=== PATIENT | male | born 1975 | race Caucasian/White ===

== ENCOUNTER 2024-06-30 16:25 | Emergency (ER) | payer BC, SELFPAY ==
[2024-06-30 16:45] VITALS: BP 141/100; PULSE 97; TEMP 36.8; O2SAT 97; BMI 23.0
--- NOTE | 2024-06-30 17:20 | CT_ITS ---
[address] [address] Patient Name: KENDY CASSIDY MRN: [id number] date: 1975 Sex: M Assigned Patient Location: ER Current Patient Location: .[facility] Accession/Order Number: [id number] Exam Date: 06/30/2024 18:05 Report Date: 06/30/2024 19:40 At the request of: CONNIE PERAZA Procedure: CT abdomen pelvis w con Indication: Left groin pain. Bright red blood in stool with diarrhea. Comparison: None Procedure: Axial images were made from the diaphragms through the symphysis pubis. No oral contrast was given prior to scanning. 100 mL Omnipaque 300 Intravenous contrast was given. Dose reduction techniques were achieved by using automated exposure control and/or adjustment of mA and/or kV according to patient size and/or use of iterative reconstruction technique. Findings: Liver/Biliary System: A 1.1 cm subtle hypodensity in left lobe of the liver, probably benign ? Hemangioma. No intra or extrahepatic biliary dilatation. No gallstones or cholecystitis. Pancreas/Spleen: No evidence of acute pancreatitis. Pancreatic duct is not dilated. No pancreatic masses. No splenomegaly or splenic lesions. Kidneys/Adrenals: Normal symmetrical nephrograms. No renal masses. No renal or ureteral stones are seen. No hydronephrosis or hydroureter bilaterally. No adrenal nodules. Aorta/Vessels: No evidence of aortic aneurysm. Patent IVC, renal veins, hepatic veins and portal venous system. Bowel/Fluid/Nodes: Hyperenhancement of terminal ileum mucosa which may suggest terminal ileitis. There is also mild diffuse wall thickening of transverse colon with prominent vasa recta which may suggest colitis. Please correlate clinically. Colonic diverticulosis with no evidence of diverticulitis. Normal appendix. No small bowel dilatation or wall thickening. No evidence of bowel obstruction. No ascites or fluid collections. No adenopathy. Lung bases: Clear. Other findings: No aggressive osseous lesions are seen. Pelvis: No pelvic masses or adenopathy. No free fluid seen in the pelvis. Bladder, seminal vesicles and prostate are unremarkable. Bilateral Fat-containing inguinal hernias. Other Findings: No aggressive osseous lesions are seen. CT/CT abdomen pelvis w con Impression: 1. Hyperenhancement of terminal ileum mucosa which may suggest terminal ileitis. There is also mild diffuse wall thickening of transverse colon with prominent vasa recta which may suggest colitis. Please correlate clinically. 2. Colonic diverticulosis. Bilateral fat-containing inguinal hernias. 3. A 1.1 cm subtle hypodensity in left lobe of the liver, probably benign ? Hemangioma. Ultrasound may be recommended on a nonemergent basis to confirm hemangioma. Electronically authenticated by: ELIZABETH NGUYEN Date: 06/30/2024 19:40
--- NOTE | 2024-06-30 17:21 | ED_ITS ---
HPI - Abdominal Pain General Chief Complaint: Abdominal Pain Stated Complaint: HERNIA Time Seen by Provider: 06/30/24 17:15 Mode of arrival: walk-in History of Present Illness HPI narrative: 48 year old male presents to the ED for rectal bleeding, diarrhea, left groin pain. Onset was 3 days ago for the diarrhea. Reports bright red blood in his stool yesterday. The loose stools started after he began taking meloxicam. Also states he was told he has an inguinal hernia about one month ago. He did not start having pain to the area until today. He does heavy lifting, climbing at work. Denies known injury. Denies fever, chills, urinary sx. Denies straining with bowel movements. Denies dizziness, SOB. Related Data Previous Rx's ?Medication ?Instructions ?Recorded ciprofloxacin HCl 500 mg tablet 500 mg PO Q12H #20 tabs 06/30/24 (Cipro) metronidazole 500 mg tablet 500 mg PO Q8H 10 days #30 tabs 06/30/24 prednisone 10 mg tablet See Rx Instructions .Route 06/30/24 .COMPLEX #30 tabs Allergies Allergy/AdvReac Type Severity Reaction Status Date / Time No Known Drug Allergies Allergy Verified 06/30/24 16:45 Review of Systems ROS Constitutional Denies: fever or chills Ears, nose, mouth, and throat Denies: throat pain Cardiovascular Denies: chest pain Respiratory Denies: shortness of breath Gastrointestinal Reports: diarrhea and blood in stool; Denies: abdominal pain, nausea, vomiting, constipation, rectal pain, rectal swelling or rectal itching Genitourinary Reports: scrotal swelling; Denies: painful urination, urinary urgency, blood in urine or penile discharge Musculoskeletal Denies: back pain or neck pain Integumentary/Breast Denies: rash Neurological Denies: numbness in extremities, weakness in extremities or dizziness PFSH PFSH Social History Little interest or pleasure in doing things: not at all Feeling down, depressed, or hopeless: not at all Exam Narrative Exam Narrative: RN at bedside for creative recruiter. Constitutional Vital Signs, click to edit/add: Last Vital Signs Temp 98.2 F 06/30/24 16:45 Pulse 97 H 06/30/24 16:45 Resp 18 06/30/24 16:45 BP 141/100 H 06/30/24 16:45 Pulse Ox 97 06/30/24 16:45 O2 Del Method Room Air 06/30/24 16:45 Common normals: no apparent distress and oriented x3 Eye Common normals: conjunctivae normal and no scleral icterus Neck & C-Spine Common normals: supple Chest Chest: symmetrical chest wall rise Respiratory Common normals: normal respiratory effort Effort & inspection: able to speak in complete sentences Cardio Common normals: regular rate and regular rhythm GI Common normals: Normal to inspection, nondistended, normoactive bowel sounds present, soft to palpation and non-tender Scrotum: inguinal hernia (Soft, reducible) Inguinal hernia laterality: left Neuro Common normals: oriented x3 and moves all extremities Sensorium/orientation: awake and alert Speech: speech normal Course Vital Signs Vital signs: Vital Signs Temperature 98.2 F 06/30/24 16:45 Pulse Rate 97 H 06/30/24 16:45 Respiratory Rate 18 06/30/24 16:45 Blood Pressure 141/100 H 06/30/24 16:45 Pulse Oximetry 97 06/30/24 16:45 Oxygen Delivery Method Room Air 06/30/24 16:45 Temperature 98.2 F 06/30/24 16:45 Pulse Rate 97 H 06/30/24 16:45 Respiratory Rate 18 06/30/24 16:45 Blood Pressure 141/100 H 06/30/24 16:45 Pulse Oximetry 97 06/30/24 16:45 Oxygen Delivery Method Room Air 06/30/24 16:45 MDM - Abdominal Pain MDM Narrative Medical decision making narrative: WBC count was 10.8. Urinalysis was unremarkable. CT scan showed bilateral fat- containing inguinal hernias; suggestions of terminal ileitis, colitis; hypodensity in left lobe of the liver. Findings were discussed with the patient. He was given a copy of his CT report. He reported he was referred to a specialist for a colonoscopy and hernia repair by his pcp; he attempted to call earlier today for an appointment. Prescriptions were provided for Cipro, Flagyl, and prednisone. Follow up with pcp, GI, and surgery for a recheck, further evaluation and treatment. Return precautions were discussed. Differential Diagnosis Differential diagnosis: Likely abdominal pain, diverticulitis, small bowel obstruction and other (hernia, colitis) Medical Records Attestation: I reviewed the patient's medical records. Lab Data Attestation: I reviewed the patient's lab results. Labs: Lab Results 06/30/24 06/30/24 06/30/24 Range/Units 17:30 18:00 18:18 WBC 10.8 (4.0-11.0) 10^3/uL RBC 5.26 (4.70-6.10) 10^6/uL Hgb 17.5 (14.0-18.0) g/dL Hct 49.8 (42.0-54.0) % MCV 94.7 H (80.0-94.0) fL MCH 33.3 (25.9-34.0) pg MCHC 35.1 (29.9-35.2) g/dL RDW 12.8 (11.0-15.0) % Plt Count 338 (150-450) 10^3/uL MPV 10.0 (9.5-13.5) fL Neut % (Auto) 60.9 (43.0-75.0) % Lymph % (Auto) 26.4 (20.5-60.0) % [place] % (Auto) 7.8 (1.7-12.0) % Eos % (Auto) 3.6 (0.9-7.0) % Baso % (Auto) 0.6 (0.2-2.0) % Neut # (Auto) 6.6 H (1.4-6.5) 10^3/uL Lymph # (Auto) 2.9 (1.2-3.8) 10^3/uL [place] # (Auto) 0.9 H (0.3-0.8) 10^3/uL Eos # (Auto) 0.4 (0.0-0.7) 10^3/uL Baso # (Auto) 0.1 (0.0-0.1) 10^3/uL Abs Immat Gran (auto) 0.08 H (0.00-0.03) 10^3/uL Imm/Tot Granulo (auto) 0.7 H (0.0-0.5) % PT 10.8 (9.0-11.6) sec INR 1.02 Sodium 137 (136-145) mmol/L Potassium 4.1 (3.5-5.1) mmol/L Chloride 101 (98-107) mmol/L Carbon Dioxide 28.5 (21.0-32.0) mmol/L Anion Gap 11.6 BUN 16.0 (7.0-18.0) mg/dL Creatinine 1.14 (0.70-1.30) mg/dL Est GFR ( Amer) >60 (>=60 mL/min/1.73m^2) Est GFR (Non-Af Amer) >60 (>=60 mL/min/1.73m^2) BUN/Creatinine Ratio 14.0 Glucose 94 (74-106) mg/dL Calcium 8.9 (8.5-10.1) mg/dL Total Bilirubin 0.7 (0.2-1.0) mg/dL AST 19 (15-37) U/L ALT 27 (16-63) U/L Alkaline Phosphatase 96 (46-116) U/L Total Protein 7.0 (6.4-8.2) g/dL Albumin 3.6 (3.4-5.0) g/dL Globulin 3.4 g/dL Albumin/Globulin Ratio 1.1 Urine Color Lt. yellow (YELLOW) Urine Clarity Clear (CLEAR) Urine pH 6.0 (5.0-9.0) Ur Specific [place] 1.015 (1.005-1.025) Urine Protein Negative (NEG/TRACE) mg/dL Urine Glucose (UA) Negative (NEGATIVE) mg/dL Urine Ketones Negative (NEGATIVE) mg/dL Urine Occult Blood Negative (NEGATIVE) Urine Nitrite Negative (NEGATIVE) Urine Bilirubin Negative (NEGATIVE) Urine Urobilinogen 0.2 (0.2-1.0) EU/dL Ur Leukocyte Esterase Negative (NEGATIVE) Imaging Data CT scan - abdomen: Radiologist's impression: ITS Impressions Abdomen/Pelvis CT 06/30/24 17:20 Impression: 1. Hyperenhancement of terminal ileum mucosa which may suggest terminal ileitis. There is also mild diffuse wall thickening of transverse colon with prominent vasa recta which may suggest colitis. Please correlate clinically. 2. Colonic diverticulosis. Bilateral fat-containing inguinal hernias. 3. A 1.1 cm subtle hypodensity in left lobe of the liver, probably benign ? Hemangioma. Ultrasound may be recommended on a nonemergent basis to confirm hemangioma. Electronically authenticated by: ELIZABETH NGUYEN Date: 06/30/2024 19:40 Discharge Plan Discharge Chief Complaint: Abdominal Pain Clinical Impression: Abdominal pain, Bilateral inguinal hernia, Colitis, Abnormal CT of the abdomen Patient Disposition: Home, Self-Care Time of Disposition Decision: 20:01 Condition: Good Mode of Transportation: Private Vehicle Prescriptions / Home Meds: New ciprofloxacin HCl [Cipro] 500 mg tablet 500 mg PO Q12H Qty: 20 0RF metronidazole 500 mg tablet 500 mg PO Q8H 10 Days Qty: 30 0RF prednisone 10 mg tablet See Rx Instructions .ROUTE .COMPLEX Qty: 30 0RF Rx Instructions: Take 5 tablets on days 1-2, 4 tabs on days 3-4, 3 tabs on days 5-6, 2 tabs on days 7-8, one tab on days 9-10. Print Language: [place] Instructions: Inguinal Hernia (ED), Acute Abdominal Pain (ED), Colitis (ED) Additional Instructions: Return to the ER for worsening symptoms. Referrals: MONET FLOWERS [Physician] - 1 week GENIA DOBSON [Primary Care Provider] - 1 week
[2024-06-30 17:38] LABS: Basophils Absolute Auto 0.1 10^3/uL (0.0-0.1); Basophils Percent Auto 0.6 % (0.2-2.0); Eosinophils Absolute Auto 0.4 10^3/uL (0.0-0.7); Eosinophils Percent Auto 3.6 % (0.9-7.0); Hematocrit 49.8 % (42.0-54.0); Hemoglobin 17.5 g/dL (14.0-18.0); Immature Granulocytes Abs Auto 0.08 10^3/uL (0.00-0.03); Immature Granulocytes Pct Auto 0.7 % (0.0-0.5); Lymphocytes Absolute Auto 2.9 10^3/uL (1.2-3.8); Lymphocytes Percent Auto 26.4 % (20.5-60.0); Mean Corpuscular HGB Conc 35.1 g/dL (29.9-35.2); Mean Corpuscular Hemoglobin 33.3 pg (25.9-34.0); Mean Corpuscular Volume 94.7 fL (80.0-94.0); Monocytes Absolute Auto 0.9 10^3/uL (0.3-0.8); Monocytes Percent Auto 7.8 % (1.7-12.0); Neutrophils Absolute Auto 6.6 10^3/uL (1.4-6.5); Neutrophils Percent Auto 60.9 % (43.0-75.0); Platelet Count 338 10^3/uL (150-450); Red Blood Count 5.26 10^6/uL (4.70-6.10); Red Cell Distribution Width 12.8 % (11.0-15.0); White Blood Count 10.8 10^3/uL (4.0-11.0)
[2024-06-30 18:30] LABS: Bilirubin Urine NEGATIVE (NEGATIVE); Blood Urine NEGATIVE (NEGATIVE); Clarity Urine CLEAR (CLEAR); Color Urine LT. YELLOW (YELLOW); Glucose Urine UA NEGATIVE (NEGATIVE); Ketones Urine NEGATIVE (NEGATIVE); Leukocyte Esterase Urine NEGATIVE (NEGATIVE); Nitrite Urine NEGATIVE (NEGATIVE); Protein Urine NEGATIVE (NEG/TRACE); Specific Gravity Urine 1.015 (1.005-1.025); Urine Microscopic Indicated NO; Urobilinogen Urine 0.2 EU/dL (0.2-1.0)
[2024-06-30 18:38] LABS: INR 1.02; Prothrombin Time 10.8 sec (9.0-11.6)
[2024-06-30 18:42] LABS: Alanine Aminotransferase 27 U/L (16-63); Albumin Globulin Ratio 1.1; Albumin Level 3.6 g/dL (3.4-5.0); Alkaline Phosphatase 96 U/L (46-116); Anion Gap 11.6; Aspartate Amino Transferase 19 U/L (15-37); Bilirubin Total 0.7 mg/dL (0.2-1.0); Calcium 8.9 mg/dL (8.5-10.1); Carbon Dioxide 28.5 mmol/L (21.0-32.0); Chloride 101 mmol/L (98-107); Estimated GFR (African America >60 (>=60 mL/min/1.73m^2); Estimated GFR (Non-African Ame >60 (>=60 mL/min/1.73m^2); Globulin 3.4 g/dL; Glucose 94 mg/dL (74-106); Potassium 4.1 mmol/L (3.5-5.1); Sodium 137 mmol/L (136-145)
[2024-06-30 20:22] VITALS: BP 128/74; PULSE 80; TEMP 36.8; O2SAT 99
== END 2024-06-30 20:26 | disposition home or self-care (01) ==
PROVIDERS: Nurse Practitioner Family; Emergency Provider Emergency Medicine; PCP Internal Medicine
DX: K52.9 Noninfective gastroenteritis and colitis, unspecified (principal); K40.90 Unilateral inguinal hernia, without obstruction or gangrene, not specified as recurrent; R10.9 Unspecified abdominal pain; R93.5 Abnormal findings on diagnostic imaging of other abdominal regions, including retroperitoneum
CPT/HCPCS: 36415; 74177; 80053; 81003; 85025; 85610; 85730; 99285; G0328; Q9967

== ENCOUNTER 2024-12-30 10:08 | Emergency (ER) | payer BC, SELFPAY ==
[2024-12-30 10:13] VITALS: BP 160/110; PULSE 99; TEMP 37; O2SAT 99; BMI 22.5
--- NOTE | 2024-12-30 10:22 | ED.GENADUL1 ---
HPI HPI - General Adult General Chief complaint: Skin/Abscess/Foreign Body Stated complaint: INSECT BITE Time Seen by Provider: 12/30/24 10:15 Source: patient Mode of arrival: walk-in History of Present Illness HPI narrative: 49-year-old male presents to the emergency department for a bump near his anus. He states it burst open and some yellow stuff and blood came out. He has had it for few days and it burst today. It stopped bleeding. No fever or complaints of abdominal pain. No injury. Related Data Home Medications ?Medication ?Instructions ?Recorded ?Confirmed rimegepant 75 mg disintegrating mg 12/30/24 tablet (Nurtec ODT) testosterone cypionate 200 mg/mL mg 12/30/24 intramuscular oil Previous Rx's ?Medication ?Instructions ?Recorded cephalexin 500 mg capsule 500 mg PO QID 10 days #40 caps 12/30/24 sulfamethoxazole 800 1 tab PO BID 10 days #20 tabs 12/30/24 mg-trimethoprim 160 mg tablet (Bactrim DS) Allergies Allergy/AdvReac Type Severity Reaction Status Date / Time No Known Drug Allergies Allergy Verified 12/30/24 10:13 Opioid HPI Opioid Management Most Recent Opioid Data: Last Pain Scale 4 Today, 10:13 Review of Systems ROS Narrative A ten point review of systems is negative except as noted above. PFSH PFSH Social History Little interest or pleasure in doing things: not at all Feeling down, depressed, or hopeless: not at all Exam Narrative Exam Narrative: Nurses note and vital signs reviewed and patient is not hypoxic. General: The patient appears well and in no apparent distress. Patient is resting comfortably on cart. Skin: Warm, dry, no pallor noted. There is no rash noted. Head: Normocephalic, atraumatic Eye: Normal conjunctiva, no drainage Ears, Nose, Mouth, and Throat: oral mucosa is moist. Nares patent. Cardiovascular: Regular Rate and Rhythm Respiratory: Patient is in no distress, no accessory muscle use Back: non-tender, no CVA tenderness bilaterally to percussion. GI: Soft and nontender. Perianal examination shows no hemorrhoids. On the right side posterior to his anus is a slightly raised area which is not fluctuant. It has been opened and there is some dried blood. I cannot express any more blood or pus from it. Musculoskeletal: The patient has no evidence of calf tenderness, no pitting edema, symmetrical pulses noted bilaterally Neurological: A&O, normal speech Psychiatric: Cooperative Constitutional Vital Signs, click to edit/add: Last Vital Signs Temp 98.6 F 12/30/24 10:13 Pulse 99 H 12/30/24 10:13 Resp 16 12/30/24 10:13 BP 160/110 H 12/30/24 10:13 Pulse Ox 99 12/30/24 10:13 O2 Del Method Room Air 12/30/24 10:13 Course Vital Signs Vital signs: Vital Signs Temperature 98.6 F 12/30/24 10:13 Pulse Rate 99 H 12/30/24 10:13 Respiratory Rate 16 12/30/24 10:13 Blood Pressure 160/110 H 12/30/24 10:13 Pulse Oximetry 99 12/30/24 10:13 Oxygen Delivery Method Room Air 12/30/24 10:13 Temperature 98.6 F 12/30/24 10:13 Pulse Rate 99 H 12/30/24 10:13 Respiratory Rate 16 12/30/24 10:13 Blood Pressure 160/110 H 12/30/24 10:13 Pulse Oximetry 99 12/30/24 10:13 Oxygen Delivery Method Room Air 12/30/24 10:13 Medical Decision Making MDM Narrative Medical decision making narrative: The patient has an abscess that has drained. Further incision and drainage is not indicated at this point. He is placed on Bactrim and Keflex and was recommended warm soaks 4 times a day. Treatment diagnosis and follow-up were discussed with the patient. Differential Diagnosis Differential Diagnosis: Abscess, cellulitis, hemorrhoid Discharge Plan Discharge Chief Complaint: Skin/Abscess/Foreign Body Clinical Impression: Abscess Patient Disposition: Home, Self-Care Time of Disposition Decision: 10:22 Condition: Good Mode of Transportation: Private Vehicle Prescriptions / Home Meds: New sulfamethoxazole-trimethoprim [Bactrim DS] 800-160 mg tablet 1 tab PO BID 10 Days Qty: 20 0RF cephalexin 500 mg capsule 500 mg PO QID 10 Days Qty: 40 0RF No Action testosterone cypionate 200 mg/mL oil Nurtec ODT 75 mg tablet,disintegrating Print Language: Micronesian Instructions: Abscess (ED) Additional Instructions: Warm soak for 10 minutes 4 times a day Referrals: GENIA DOBSON [Primary Care Provider, Internal Medicine] - 1 week
== END 2024-12-30 10:32 | disposition home or self-care (01) ==
PROVIDERS: Emergency Provider Emergency Medicine; PCP Internal Medicine
DX: L02.31 Cutaneous abscess of buttock (principal)
CPT/HCPCS: 99283